=== PATIENT | male | born 1950 | race Caucasian/White ===

== ENCOUNTER 2023-04-21 09:08 | Day surgery (SDC) | payer MEDICARE ==
[2023-04-21] VITALS (11 sets, daily range): BP systolic 108–143; BP diastolic 68–82; PULSE 55–85; RESP 16; TEMP 98.7; O2SAT 93–96
[~2023-04-21] VITALS: Ht 182.9 cm; Wt 104.5 kg
[2023-04-21] MEDS ORDERED: cefazolin 2gm/D5W 100mL 100 ML IV ONE (09:32)
[2023-04-21] MEDS ORDERED: normal saline 1000ml 1,000 ML IV SCH (09:35)
[2023-04-21 10:18] LABS: BASOPHILS % (AUTO) 0.6 % (0-1); EOSINOPHILS # (AUTO) 0.1 X10'3 (0-0.9); EOSINOPHILS % (AUTO) 1.1 % (0-6); HEMATOCRIT 49.1 % (42.0-52.0); HEMOGLOBIN 16.5 g/dl (14.0-17.9); LYMPHOCYTES # (AUTO) 1.2 X10'3 (1.1-4.8); LYMPHOCYTES % (AUTO) 19.7 % (21-51); MEAN CORPUSCULAR HEMOGLOBIN 31.4 PG (27.0-31.0); MEAN CORPUSCULAR HGB CONC 33.6 g/dL (33.0-36.5); MEAN CORPUSCULAR VOLUME 93.6 FL (78-98); MEAN PLATELET VOLUME 9.6 FL (7.4-10.4); MONOCYTES # (AUTO) 0.5 X10'3 (0-0.9); MONOCYTES % (AUTO) 7.7 % (2-12); NEUTROPHILS # (AUTO) 4.5 X10'3 (1.8-7.7); NEUTROPHILS % (AUTO) 70.9 % (42-75); PLATELET COUNT 137 X10'3 (140-440); RED BLOOD COUNT 5.25 X10'6 (4.70-6.10); WHITE BLOOD COUNT 6.3 X10'3 (4.5-11.0)
[2023-04-21 10:30] LABS: PROTHROMBIN TIME 10.7 SECONDS (9.0-12.0)
[2023-04-21] MEDS ORDERED: SIMV-42 PO (10:30)
[2023-04-21] MEDS ORDERED: UBID50TA3 PO (10:30)
[2023-04-21] MEDS ORDERED: TEST200V33 IM (10:30)
[2023-04-21] MEDS ORDERED: ASPI81TA52 PO (10:30)
[2023-04-21] MEDS ORDERED: CARV-50 PO (10:30)
[2023-04-21] MEDS ORDERED: ASCO-157 PO (10:30)
[2023-04-21] MEDS ORDERED: LISI10TA27 PO (10:30)
[2023-04-21] MEDS ORDERED: FURO-150 PO (10:30)
[2023-04-21] MEDS ORDERED: MONT-40 PO (10:30)
[2023-04-21] MEDS ORDERED: ALBU18HF2 INH (10:30)
[2023-04-21] MEDS ORDERED: BUDE10.2 INH (10:30)
[2023-04-21 10:37] LABS: ALBUMIN 3.6 G/DL (3.4-5.0); ANION GAP 7 (8-16); BLOOD UREA NITROGEN 15 MG/DL (7-18); BUN/CREATININE RATIO 16.5 (10.0-20.0); CALCIUM 8.9 MG/DL (8.5-10.1); CHLORIDE 104 MMOL/L (99-107); CREATININE 0.91 MG/DL (0.60-1.10); GLUCOSE 96 MG/DL (70-104); POTASSIUM 3.9 MMOL/L (3.5-5.1); SODIUM 139 MMOL/L (135-145); TOTAL CARBON DIOXIDE 27.6 MMOL/L (24-32); eCRCL 79 ML/MIN; eGFR 82 ML/MIN
[2023-04-21] MEDS ORDERED: LIDOcaine 1% w/EPI 1:100,000 inj. MDV 50 ML VIAL ONE (10:39)
[2023-04-21] MEDS ORDERED: ceFAZolin 1000mg inj ONE (10:40)
[2023-04-21] MEDS ORDERED: midazolam 1 mg/ML 2ml injection ONE ×2 (11:36→12:29)
[2023-04-21] MEDS ORDERED: fentaNYL/PF 50MCG/1 ML 2ML syringe ONE ×2 (11:36→12:44)
[2023-04-21] MEDS ORDERED: vancomycin 1,000mg inj ONE (11:50)
[2023-04-21] MEDS ORDERED: clindamycin-Cleocin 900mg/D5W 50 ML IV STA (11:57)
[2023-04-21] MEDS ORDERED: HYDROmorphone 1 mg/ml syringe ONE (12:47)
[2023-04-21] MEDS ORDERED: iohexol 350 MG/ML 50ML vial IV ONE (12:47)
[2023-04-21] MEDS ORDERED: diphenhydrAMINE 50 mg/ml inj ONE (12:59)
[2023-04-21] MEDS ORDERED: HYDROcodone/acetaminophen 5mg/325mg tablet PO PRN (14:15)
[2023-04-21] MEDS ORDERED: HYDROcodone/acetaminophen 10/325mg tab PO PRN (14:15)
[2023-04-21] MEDS ORDERED: vancomycin/NS 1 GM ADD-VANTAGE 250 ML X 1 DOSE IV ONE (14:15)
== END 2023-04-21 18:45 | disposition home or self-care (01) ==
LOC: SSTAY O 09:08
PROVIDERS: ATTEND Internal Medicine Cardiovascular Disease
DX: I49.5 Sick sinus syndrome (principal); I47.10 Supraventricular tachycardia, unspecified; I10 Essential (primary) hypertension; E78.5 Hyperlipidemia, unspecified; I25.119 Atherosclerotic heart disease of native coronary artery with unspecified angina pectoris; E66.9 Obesity, unspecified; Z68.29 Body mass index [BMI] 29.0-29.9, adult; K21.9 Gastro-esophageal reflux disease without esophagitis; M48.00 Spinal stenosis, site unspecified; E55.9 Vitamin D deficiency, unspecified; G47.30 Sleep apnea, unspecified; J44.9 Chronic obstructive pulmonary disease, unspecified; Z85.828 Personal history of other malignant neoplasm of skin; Z98.49 Cataract extraction status, unspecified eye; Z98.890 Other specified postprocedural states; Z88.0 Allergy status to penicillin; Z87.891 Personal history of nicotine dependence; Z82.3 Family history of stroke; Z83.3 Family history of diabetes mellitus; Z82.49 Family history of ischemic heart disease and other diseases of the circulatory system
CPT/HCPCS: 33208; 36415; 71046; 80048; 85025; 85610; 93005; 99152; 99153; C1785; C1898; J1170; J1200; J2250; J3010; J3370; J3490; J7030; Q9967; A4565; A6258; A6449; J0690